=== PATIENT | female | born 1960 | race Caucasian/White ===

== ENCOUNTER 2019-03-25 07:38 | Day surgery (SDC) | payer OTHER ==
[2019-03-22 12:29] VITALS: BMI 32.6
[2019-03-25] MEDS ORDERED: Ketorolac Tromethamine 30 MG/ML VIAL ONE (08:13)
[2019-03-25] MEDS ORDERED: Bupivacaine HCl 0.25%/Epi 0.0005/PF 10 ML VIAL FS ONE (08:16)
[2019-03-25] MEDS ORDERED: Midazolam HCl 2 mg/2 ml Vial ONE (09:21)
[2019-03-25] MEDS ORDERED: Fentanyl 100 MCG/2 ML VIAL ONE ×2 (09:31→12:00)
[2019-03-25] MEDS ORDERED: Dexamethasone 20 MG/5 ML VIAL ONE (15:06)
[2019-03-25] MEDS ORDERED: PROPOFOL 200 MG/20 ML VIAL ONE (15:06)
[2019-03-25] MEDS ORDERED: Rocuronium Bromide 10 MG/ML (10ML VIAL) ONE (15:06)
[2019-03-25] MEDS ORDERED: Ondansetron PF 4 MG/2 ML Vial ONE (15:06)
--- NOTE | 2019-03-26 00:11 | OP ---
DATE OF PROCEDURE: 03/25/2019 PREOPERATIVE DIAGNOSIS: Symptomatic gallbladder sludge with suspected recent pancreatitis. POSTOPERATIVE DIAGNOSIS: Symptomatic gallbladder sludge with suspected recent pancreatitis. PROCEDURE PERFORMED: Laparoscopic cholecystectomy. ANESTHESIA: General endotracheal. INDICATIONS: The patient is a 58-year-old female, who presented with recurrent episodes of epigastric pain radiating through to her back. Endoscopic ultrasound had revealed evidence of gallbladder sludge. She apparently had CT evidence of pancreatitis earlier as well. She is taken to the operating room at this time for laparoscopic cholecystectomy. DESCRIPTION OF OPERATION: Informed consent was obtained. The patient was taken to the operating room where general endotracheal anesthesia was obtained with the patient in the supine position. The abdomen was prepped with Betadine and draped in the usual sterile fashion. 0.25% Marcaine with epinephrine was infiltrated below the umbilicus and a 10 mm infraumbilical incision was created. A Veress needle was passed through this incision into the peritoneal cavity. A pneumoperitoneum was established using carbon dioxide up to a pressure of 15 mmHg. Local anesthetic was infiltrated and 3 additional 5 mm right upper quadrant incisions were created. Through the mid incision, a 5 mm port was passed into the peritoneal cavity. The camera was passed through this port and under direct vision, an 11 port was passed through the infraumbilical incision. The camera was replaced through this port, and under direct vision, 2 additional 5 mm ports were passed through the incisions already created. The gallbladder was grasped and retracted in a cephalad direction. Minimal adhesions were bluntly stripped away from the apex of the gallbladder, and the apex was retracted laterally and inferiorly. Careful dissection was carried out to the apex of the gallbladder to identify the cystic duct and cystic artery. These were each carefully dissected circumferentially. The duct was of normal caliber. Both the duct and the artery were divided between clips, leaving 2 on the side to remain within the abdomen. The gallbladder was then dissected out of the gallbladder fossa using electrocautery and removed through the infraumbilical port site. The fascia was closed with 0 Vicryl suture and a GraNee needle. The right upper quadrant was inspected and irrigated. All irrigant was aspirated. All ports and instruments were removed under direct vision. Pneumoperitoneum was carefully evacuated. Additional local anesthetic was infiltrated into each port site. The skin edges were approximated with 4-0 Monocryl subcuticular sutures, and Dermabond was placed externally. There were no complications. The patient tolerated the procedure well and was taken to the recovery room in stable condition. FINDINGS: The patient had no adhesions to her gallbladder nor any inflammatory change. The duct was small and noninflamed and cholangiogram was not obtained. What was unusual was fairly dense adhesions between the right colon and the anterior abdominal wall extending essentially from the cecum to the hepatic flexure. The appendix was inspected and found to be entirely normal in appearance and without any adhesions at all. I took down the adhesions in the upper abdomen to give access to the liver. There were also adhesions to the edge of the liver that were taken down with cautery. There was no blood loss or any significant injury to anything during this process. The patient tolerated the procedure well and was taken to the recovery room in stable condition. Job ID: [id number]
== END 2019-03-25 13:30 | disposition home or self-care (01) ==
LOC: SDC 07:38
PROVIDERS: ATTEND Specialist
PROC: 0FT44ZZ Resection of Gallbladder, Percutaneous Endoscopic Approach (ICD-10-PCS; principal; 2019-03-25)
DX: K81.1 Chronic cholecystitis (principal); K82.8 Other specified diseases of gallbladder; I11.9 Hypertensive heart disease without heart failure; Z79.899 Other long term (current) drug therapy
CPT/HCPCS: 88304; J0131; J0690; J1100; J1885; J2250; J2405; J2704; J3010